=== PATIENT | female | born 1940 | race Two or more races ===

== ENCOUNTER 2020-09-18 07:05 | Day surgery (SDC) | payer OTHER | END 2020-09-18 16:30 | disposition home or self-care (01) | LOC: AMB-ENDOS 07:05 | PROVIDERS: ATTEND Surgery | DX: C20 Malignant neoplasm of rectum (principal); D12.3 Benign neoplasm of transverse colon; D12.4 Benign neoplasm of descending colon; Z20.822 Contact with and (suspected) exposure to COVID-19 ==